=== PATIENT | female | born 1965 | race Caucasian/White ===

== ENCOUNTER → 2016-09-27 | Outpatient (CLI) | payer BC, OTHER | LOC: MAMO 10:39 | DX: Z12.31 Encounter for screening mammogram for malignant neoplasm of breast (principal) | CPT/HCPCS: G0202 ==

== ENCOUNTER → 2020-11-16 | Outpatient (CLI) | payer MEDICARE, OTHER ==
[~2020-11-16] MED LIST: CURCUMIN250 GM PO; FLEXERIL 10 MG10 MG PO; IBUPROFEN600 MG PO; NAPROSYN500 MG PO; VENTOLIN HFA 66.7 GM INH; ZANTAC150 MG PO
== END ==
LOC: RAD 11:51
DX: M54.2 Cervicalgia (principal); M47.812 Spondylosis without myelopathy or radiculopathy, cervical region
CPT/HCPCS: 72040